=== PATIENT | female | born 1935 | race Caucasian/White ===

== ENCOUNTER → 2016-11-17 | Outpatient (CLI) | payer MEDICARE | END | disposition home or self-care (01) | LOC: CFH 12:17 → EDSTATUS 12:30 | PROVIDERS: ATTEND Internal Medicine | DX: I65.23 Occlusion and stenosis of bilateral carotid arteries (principal) | CPT/HCPCS: 93880 ==

== ENCOUNTER → 2018-05-04 | Outpatient (CLI) | payer MEDICARE | END | disposition home or self-care (01) | LOC: CFH 08:52 | PROVIDERS: ATTEND Internal Medicine | DX: I08.2 Rheumatic disorders of both aortic and tricuspid valves (principal); I10 Essential (primary) hypertension | CPT/HCPCS: 93306 ==

== ENCOUNTER → 2018-06-28 | Outpatient (CLI) | payer MEDICARE ==
[2018-06-28 12:49] LABS: BASOPHILS # (AUTO) 0.02 x10^3/uL (0-0.1); BASOPHILS % (AUTO) 1 % (0-1); EOSINOPHILS # (AUTO) 0.09 x10^3/uL (0-0.4); EOSINOPHILS % (AUTO) 2 % (1-7); LYMPHOCYTES # (AUTO) 0.93 x10^3/uL (1-3.4); LYMPHOCYTES % (AUTO) 20 % (22-44); MD NO; MEAN CORPUSCULAR HEMOGLOBIN 33.6 pg (27.0-34.8); MEAN CORPUSCULAR VOLUME 101.7 fL (80-100); MEAN PLATELET VOLUME 8.9 fL (7.4-10.4); MONOCYTES # (AUTO) 0.45 x10^3/uL (0.2-0.8); MONOCYTES % (AUTO) 10 % (2-9); NEUTROPHILS # (AUTO) 3.21 x10^3/uL (1.8-6.8); NEUTROPHILS % (AUTO) 68 % (42-75); PLATELET COUNT 200 x10^3/uL (130-400); RED BLOOD COUNT 3.64 x10^6/uL (3.82-5.3); RED CELL DISTRIBUTION WIDTH 13.3 % (9.6-15.2)
[2018-06-28 12:57] LABS: CHLORIDE 107 mmol/L (98-107)
[2018-06-28 13:13] LABS: ALANINE AMINOTRANSFERASE 32 U/L (12-78); ALKALINE PHOSPHATASE 62 U/L (45-117); ANION GAP 6 mmol/L (5-15); BILIRUBIN,TOTAL 0.5 mg/dL (0.2-1.0); CALCIUM 8.4 mg/dL (8.5-10.1); CHOL/HDL RATIO 2.3; CHOLESTEROL, TOTAL 173 mg/dL (140-239); CREATININE 1.22 mg/dL (0.55-1.02); HDL CHOL % 44 % (28-40); HDL CHOLESTEROL (DIRECT) 76 mg/dL (40-60); LDL CHOLESTEROL,CALCULATED 85 mg/dL (54-169); LDL/HDL RATIO 1.1 (0.5-3.0); TOTAL PROTEIN 6.6 g/dL (6.4-8.2); TRIGLYCERIDES 58 mg/dL (50-200); VLDL CHOLESTEROL 12 mg/dL (0-25)
== END | disposition home or self-care (01) ==
LOC: CFH 09:35
PROVIDERS: ATTEND Internal Medicine
DX: E03.9 Hypothyroidism, unspecified (principal); E78.00 Pure hypercholesterolemia, unspecified; E79.0 Hyperuricemia without signs of inflammatory arthritis and tophaceous disease; I12.9 Hypertensive chronic kidney disease with stage 1 through stage 4 chronic kidney disease, or unspecified chronic kidney disease; N18.3 Chronic kidney disease, stage 3 (moderate); I65.23 Occlusion and stenosis of bilateral carotid arteries; R73.01 Impaired fasting glucose
CPT/HCPCS: 36415; 80053; 80061; 82570; 83970; 84156; 84443; 84550; 85025

== ENCOUNTER 2018-10-07 19:51 | Emergency (ER) | payer MEDICARE ==
[~2018-10-07] VITALS: Ht 162.6 cm; Wt 73.0 kg
[2018-10-07] MEDS ORDERED: DIPH,PERTUSS(ACELL),TET VAC/PF 0.5 ML IM-VACC ONE ×2 (20:00→20:21)
[2018-10-07] MEDS ORDERED: PROPARACAINE OPHTH 0.5%, 15ML EACHEYE STA (20:05)
--- NOTE | 2018-10-07 20:15 | NUR ---
[place]. REPORT RECEIVED FROM EMS. PT'S DAUGHTER FOUND PT ON GROUND AT HOME. PT HAD GLF AT HOME. SMALL LAC ON ABOVE RIGHT EYE. BLEEDING CONTROLLED. NO BLOOD THINNER. NO CARDIAC HX. PT'S AOX4 HERE. PT DENIES ANY PAIN/SX. RESPS EVEN AND UNLABORED. PA AT BEDSIDE TO ASSESS. ALL MONITORS IN PLACE. CALL LIGHT WITHIN REACH.
[2018-10-07] MEDS ORDERED: PROPARACAINE OPHTH 0.5%, 15ML ONE (20:21)
[2018-10-07 20:42] LABS: BASOPHILS # (AUTO) 0.02 x10^3/uL (0-0.1); BASOPHILS % (AUTO) 0 % (0-1); EOSINOPHILS # (AUTO) 0.07 x10^3/uL (0-0.4); EOSINOPHILS % (AUTO) 1 % (1-7); LYMPHOCYTES # (AUTO) 1.29 x10^3/uL (1-3.4); LYMPHOCYTES % (AUTO) 15 % (22-44); MD NO; MEAN CORPUSCULAR HEMOGLOBIN 32.9 pg (27.0-34.8); MEAN CORPUSCULAR HGB CONC 32.5 g/dL (32.4-35.8); MEAN CORPUSCULAR VOLUME 101.1 fL (80-100); MEAN PLATELET VOLUME 7.4 fL (7.4-10.4); MONOCYTES # (AUTO) 0.56 x10^3/uL (0.2-0.8); MONOCYTES % (AUTO) 7 % (2-9); NEUTROPHILS # (AUTO) 6.47 x10^3/uL (1.8-6.8); NEUTROPHILS % (AUTO) 77 % (42-75); PLATELET COUNT 247 x10^3/uL (130-400); RED BLOOD COUNT 3.64 x10^6/uL (3.82-5.3); RED CELL DISTRIBUTION WIDTH 12.9 % (9.6-15.2)
--- NOTE | 2018-10-07 20:48 | NUR ---
PT GIVEN TDAP SHOT. PT TOLERATED WELL.
[2018-10-07 20:54] LABS: ALANINE AMINOTRANSFERASE 30 U/L (12-78); ALBUMIN 3.8 g/dL (3.4-5.0); ANION GAP 10 mmol/L (5-15); CALCIUM 8.1 mg/dL (8.5-10.1); CHLORIDE 102 mmol/L (98-107)
[2018-10-07 20:58] LABS: ALKALINE PHOSPHATASE 84 U/L (45-117); BILIRUBIN,TOTAL 0.1 mg/dL (0.2-1.0); TOTAL PROTEIN 6.8 g/dL (6.4-8.2); TROPONIN I < 0.015 ng/mL (0.000-0.045)
[2018-10-07] MEDS ORDERED: LIDOCAINE 1%-EPI 1:100K, 50ML INFIL ONE (21:00)
--- NOTE | 2018-10-07 21:32 | NUR ---
PA AT BEDSIDE TO DO SUTURES FOR PT. PT TOLERATED WELL.
--- NOTE | 2018-10-07 21:41 | NUR ---
ICE PACK APPLIED ON LAC. PT'S AOX4. RESPS EVEN AND UNLABORED. FAMILY AT BEDSIDE.
--- NOTE | 2018-10-07 22:25 | NUR ---
PT RESTING IN [facility]. RESPS EVEN AND UNLABORED. PT'S AOX4. ALL MONITORS IN PLACE. CALL LIGHT WITHIN REACH.
[2018-10-07] MEDS ORDERED: LIDOCAINE 1%, 2ML INFIL ONE (23:00)
[2018-10-07] MEDS ORDERED: LIDOCAINE-MPF 1%, 2ML ONE (23:04)
--- NOTE | 2018-10-07 23:35 | NUR ---
EDMD AT BEDSIDE TO DO REDUCTION.
--- NOTE | 2018-10-08 00:15 | NUR ---
PT BACK TO ROOM NOW.
--- NOTE | 2018-10-08 01:06 | NUR ---
lunch rn: pt vss and updated in emr.
[2018-10-08 01:16] VITALS: BP 122/42
--- NOTE | 2018-10-08 01:34 | NUR ---
PT GIVEN DC INSTRUCTIONS AND SCRIPT. PT EDUCATED REGARDING DC MEDICATION. PT'S AOX4. RESPS EVEN AND UNLABORED. PT WHEELED TO DC. NO ACUTE DISTRESS AT DC.
== END 2018-10-08 01:35 | disposition home or self-care (01) ==
LOC: ED 20:54
DX: S52.591A Other fractures of lower end of right radius, initial encounter for closed fracture (principal); S01.111A Laceration without foreign body of right eyelid and periocular area, initial encounter; H11.31 Conjunctival hemorrhage, right eye; S00.03XA Contusion of scalp, initial encounter; F10.120 Alcohol abuse with intoxication, uncomplicated; W19.XXXA Unspecified fall, initial encounter; Y93.89 Activity, other specified; Y92.89 Other specified places as the place of occurrence of the external cause; Y99.8 Other external cause status
CPT/HCPCS: 12052; 25605; 36415; 70450; 70486; 71045; 72125; 80053; 83880; 84484; 85025; 90471; 90715; 93005

== ENCOUNTER 2019-10-08 10:08 | Emergency (ER) | payer MEDICARE ==
[~2019-10-08] VITALS: Ht 162.6 cm; Wt 79.2 kg
[2019-10-08 10:14] VITALS: BP 137/84
[2019-10-08 11:51] LABS: MICROSCOPIC AUTO
== END 2019-10-08 12:43 | disposition home or self-care (01) ==
LOC: ED 11:55
DX: N39.0 Urinary tract infection, site not specified (principal); M62.830 Muscle spasm of back; R00.0 Tachycardia, unspecified; E03.9 Hypothyroidism, unspecified; E78.00 Pure hypercholesterolemia, unspecified; I10 Essential (primary) hypertension
CPT/HCPCS: 81001; 87077; 87086; 87186; 99283

== ENCOUNTER 2020-01-23 09:06 | Emergency (ER) | payer MEDICARE ==
[~2020-01-23] VITALS: Ht 162.6 cm; Wt 77.8 kg
[~2020-01-23 09:06] MED LIST: CYAN2500 PO; CYCL1DRO EACHEYE; EZET10TA70 PO; GABA100C PO; LEVO75TA5 PO; LISI-170 PO; LOVA40TA2 PO; VIT1CAPS16 PO
--- NOTE | 2020-01-23 09:43 | NUR ---
PT WITH FB SENSATION IN THROAT AFTER EATING STEAK LAST NIGHT. PT VOICE IS CLEAR AND IS ABLE TO MANAGE SECRETIONS. PT WITH HX OF HIATAL HERNIA AND HAS HAD DIFFICULTY WITH FOOD ITEMS GETTING LODGED IN THROAT IN THE PAST. PT VSS, NAD NOTED. CALL LIGHT W/I REACH.
[2020-01-23] MEDS ORDERED: GLUCAGON 1 MG ONE (09:45)
--- NOTE | 2020-01-23 09:49 | NUR ---
PT TOOK SIPS OF SPRITE, RPTS IMPROVEMENT OF SYMPTOMS. ER PA UPDATED.
[2020-01-23] MEDS ORDERED: GLUCAGON 1 MG IVPush ONE (10:00)
[2020-01-23] MEDS ORDERED: SODIUM CHLORIDE FLUSH 10ML SYR IVF ONE (10:00)
--- NOTE | 2020-01-23 11:47 | NUR ---
PT RESTING IN BED "I FEEL FINE" VSS AWAITING US RESULTS.
[2020-01-23 12:58] VITALS: BP 167/70
== END 2020-01-23 13:01 | disposition home or self-care (01) ==
LOC: ED 10:09
DX: T18.128A Food in esophagus causing other injury, initial encounter (principal); I10 Essential (primary) hypertension; E03.9 Hypothyroidism, unspecified; X58.XXXA Exposure to other specified factors, initial encounter; Y93.89 Activity, other specified; Y92.89 Other specified places as the place of occurrence of the external cause; Y99.8 Other external cause status
CPT/HCPCS: 74021; 74220; 99284

== ENCOUNTER → 2020-06-27 | Outpatient (CLI) | payer MEDICARE | END | disposition home or self-care (01) | LOC: STAR 12:25 | PROVIDERS: ATTEND Internal Medicine | DX: Z01.818 Encounter for other preprocedural examination (principal); Z01.89 Encounter for other specified special examinations; Z01.812 Encounter for preprocedural laboratory examination; R79.1 Abnormal coagulation profile; R94.31 Abnormal electrocardiogram [ECG] [EKG] | CPT/HCPCS: 93005 ==